=== PATIENT | male | born 1965 | race Caucasian/White ===

== ENCOUNTER 2022-05-20 21:14 | Inpatient (IN) | payer OTHER ==
[2022-05-20] MEDS ORDERED: ACETAMINOPHEN 325 MG TABLET (FP) PO ONE (22:41)
[2022-05-20] MEDS ORDERED: chlordiazePOXIDE HCL 25 MG CAPSULE PO ONE (22:41)
[2022-05-20] MEDS ORDERED: ACETAMINOPHEN 325 MG TABLET (FP) ONE (22:51)
[2022-05-20] MEDS ORDERED: chlordiazePOXIDE HCL 25 MG CAPSULE ONE (22:51)
[2022-05-20] MEDS ORDERED: MAGNESIUM HYDROX 2400MG/30ML ORAL SUSPENSION 30 ML CUP PO PRN (23:00)
[2022-05-20] MEDS ORDERED: NALOXONE HCL (KLOXXADO) 8 MG SPRAY NS PRN (23:00)
[2022-05-20] MEDS ORDERED: NICOTINE POLACRILEX 2 MG GUM BUC PRN (23:00)
[2022-05-20] MEDS ORDERED: P-EPHED 60MG/TRIPROLIDI 2.5MG TABLET PO PRN (23:00)
[2022-05-20] MEDS ORDERED: ONDANSETRON *ODT* 4 MG TABLET SL PRN (23:00)
[2022-05-20] MEDS ORDERED: BISMUTH SUBSALICYLATE 524 MG/30 ML PO PRN (23:00)
[2022-05-20] MEDS ORDERED: POLYETHYLENE GLYCOL (HEALTHYLAX) 3350 17 GM PACKET PO PRN (23:00)
[2022-05-20] MEDS ORDERED: LOPERAMIDE HCL 2 MG CAPSULE PO PRN (23:00)
[2022-05-20] MEDS ORDERED: NICOTINE 10 MG CARTRIDGE (INHALER) IH PRN (23:00)
[2022-05-20] MEDS ORDERED: BENZOCAINE/MENTHOL (CHLORASEPTIC ) LOZENGE MM PRN (23:00)
[2022-05-20] MEDS ORDERED: MELATONIN 5 MG TABLETS PO PRN (23:00)
[2022-05-20] MEDS ORDERED: DICYCLOMINE HCL 10 MG CAPSULE PO PRN (23:00)
[2022-05-20] MEDS ORDERED: IBUPROFEN 600 MG TABLET (FP) PO PRN (23:00)
[2022-05-20] MEDS ORDERED: MAG HYDROX/AL HYDROX/SIMETH 30 ML UNIT-DOSE CUP PO PRN (23:00)
[2022-05-20] MEDS ORDERED: guaiFENesin 200 MG/10 ML 10 ML UNIT-DOSE CUPS PO PRN (23:00)
[2022-05-20] MEDS ORDERED: IBUPROFEN 400 MG TABLET (FP) PO PRN (23:00)
[2022-05-20] MEDS ORDERED: ACETAMINOPHEN 325 MG TABLET (FP) PO PRN ×2 (23:00)
[2022-05-20] MEDS ORDERED: ALBUTEROL SO4 HFA INHALER IH PRN (23:30)
[2022-05-20] MEDS ORDERED: chlordiazePOXIDE HCL 25 MG CAPSULE PO PRN (23:34)
[2022-05-20 23:52] VITALS: BMI 24.3
[2022-05-21] MEDS: hydrOXYzine PAMOATE 25 MG CAPSULE (FP) PO PRN (01:32)
[2022-05-21] MEDS: chlordiazePOXIDE HCL 25 MG CAPSULE PO SCH ×4 (06:05→22:35)
[2022-05-21] MEDS: PRENATAL VITAMINS W/ FOLIC ACID TABLET (FP) PO SCH (11:06)
[2022-05-21] MEDS ORDERED: THIAMINE HCL 100 MG TABLET (FP) PO SCH (22:00)
[2022-05-22] MEDS ORDERED: chlordiazePOXIDE HCL 10 MG CAPSULE PO PRN
[2022-05-22] MEDS: chlordiazePOXIDE HCL 25 MG CAPSULE PO SCH ×3 (06:34→18:55)
[2022-05-22] MEDS: PRENATAL VITAMINS W/ FOLIC ACID TABLET (FP) PO SCH (10:17)
[2022-05-22] MEDS: hydrOXYzine PAMOATE 25 MG CAPSULE (FP) PO PRN (10:17)
[2022-05-22 11:35] VITALS: RESP 18
[2022-05-22 22:40] VITALS: BP 107/62; PULSE 67; TEMP 97.2
[2022-05-23] MEDS ORDERED: chlordiazePOXIDE HCL 10 MG CAPSULE PO SCH (05:00)
[2022-05-24] MEDS ORDERED: chlordiazePOXIDE HCL 10 MG CAPSULE PO SCH (05:00)
== END 2022-05-22 23:57 | disposition short-term general hospital (02) | DRG 775 ==
LOC: Y3N 23:34 → Y6N 05-21 12:41
PROVIDERS: ADMIT Allergy & Immunology; ATTEND Surgery
PROC: HZ2ZZZZ Detoxification Services for Substance Abuse Treatment (ICD-10-PCS; principal; 2022-05-20)
DX: F10.230 Alcohol dependence with withdrawal, uncomplicated (principal); F12.20 Cannabis dependence, uncomplicated; F17.210 Nicotine dependence, cigarettes, uncomplicated; F10.282 Alcohol dependence with alcohol-induced sleep disorder; F19.24 Other psychoactive substance dependence with psychoactive substance-induced mood disorder; I10 Essential (primary) hypertension; J44.9 Chronic obstructive pulmonary disease, unspecified; R45.851 Suicidal ideations; T87.89 Other complications of amputation stump; Z89.512 Acquired absence of left leg below knee; S09.90XA Unspecified injury of head, initial encounter; W05.0XXA Fall from non-moving wheelchair, initial encounter; Y92.238 Other place in hospital as the place of occurrence of the external cause; Y93.89 Activity, other specified; Z85.828 Personal history of other malignant neoplasm of skin; Z99.89 Dependence on other enabling machines and devices
CPT/HCPCS: 70450-TC; 72125-TC; 82962; 87811; C9803-CS; U0003; U0005

== ENCOUNTER 2022-05-22 14:20 | Inpatient (IN) | payer OTHER ==
[2022-05-22] MEDS ORDERED: GABAPENTIN 300 MG CAPSULE PO ONE (15:45)
[2022-05-22] MEDS ORDERED: GABAPENTIN 300 MG CAPSULE ONE (15:50)
[2022-05-22] MEDS ORDERED: morphine CARPU-JECT 2 MG/1 ML DISP.SYRIN IM ONE (15:56)
[2022-05-22 19:33] LABS: BASO % 0.5 % (0-2.0); EOS % 1.9 % (0-4.5); HEMATOCRIT 42.7 % (35.4-49); MCH 31.1 pg (25.7-33.7); MCHC 32.9 g/dl (32.0-35.9); MEAN CELL VOLUME 94.7 fl (80-96); MEAN PLT VOLUME 8.5 fl (7.5-11.1); MONO % 11.6 % (3.8-10.2); PLATELET COUNT 251 10^3/uL (134-434); RDW 15.5 % (11.9-15.9); WHITE BLOOD COUNT 6.5 K/mm3 (4.0-10.0)
[2022-05-22 21:01] LABS: ALBUMIN 3.5 g/dl (3.4-5.0); BLOOD UREA NITROGEN 8.5 mg/dL (7-18); CALCIUM 9.3 mg/dL (8.5-10.1)
[2022-05-22 21:05] LABS: CREATININE 1.1 mg/dL (0.55-1.3)
[2022-05-22 21:06] LABS: TOT PROT 7.1 g/dl (6.4-8.2)
[2022-05-22] MEDS ORDERED: ACETAMINOPHEN 1000 MG/100 ML BAG IVPB ONE (21:09)
[2022-05-22] MEDS ORDERED: ACETAMINOPHEN INJECTION 100 ML IVPB ONE (21:11)
[2022-05-22 21:19] LABS: BILIRUBIN,TOTAL 0.3 mg/dL (0.2-1)
[2022-05-22] MEDS ORDERED: THIAMINE HCL 200 MG/2 ML VIAL IVPB ONE (21:19)
[2022-05-22] MEDS ORDERED: chlordiazePOXIDE HCL 10 MG CAPSULE ONE (21:27)
[2022-05-22] MEDS ORDERED: ACETAMINOPHEN 1000 MG/100 ML BAG IVPB PRN (21:32)
[2022-05-22] MEDS ORDERED: ALBUTEROL SO4 HFA INHALER IH PRN (22:13)
[2022-05-22] MEDS ORDERED: morphine CARPU-JECT 2 MG/1 ML DISP.SYRIN IVPUSH ONE (22:31)
[2022-05-22] MEDS ORDERED: THIAMINE HCL 200 MG/2 ML VIAL ONE (23:16)
[2022-05-22] MEDS ORDERED: chlordiazePOXIDE HCL 25 MG CAPSULE PO ONE (23:55)
[2022-05-23] MEDS ORDERED: chlordiazePOXIDE HCL 25 MG CAPSULE ONE ×3 (00:14→19:29)
[2022-05-23] MEDS ORDERED: morphine CARPU-JECT 2 MG/1 ML DISP.SYRIN IVPUSH ONE (02:58)
[2022-05-23] MEDS ORDERED: ACETAMINOPHEN INJECTION 100 ML IVPB ONE (04:15)
[2022-05-23] MEDS: chlordiazePOXIDE HCL 10 MG CAPSULE PO SCH ×4 (04:36→23:05)
[2022-05-23] MEDS ORDERED: chlordiazePOXIDE HCL 10 MG CAPSULE ONE ×4 (04:37→23:02)
[2022-05-23] MEDS ORDERED: LORazepam 2 MG TABLET PO PRN (07:37)
[2022-05-23 08:38] LABS: BASO % 0.8 % (0-2.0); HEMATOCRIT 38.6 % (35.4-49); HEMOGLOBIN 12.6 GM/dL (11.7-16.9); LYMPH % 29.3 % (8-40); MCHC 32.7 g/dl (32.0-35.9); MEAN PLT VOLUME 8.5 fl (7.5-11.1); MONO % 14.1 % (3.8-10.2); NEUT % 53.8 % (42.8-82.8); PLATELET COUNT 239 10^3/uL (134-434); RBC 4.07 M/mm3 (4.00-5.60); RDW 15.5 % (11.9-15.9); WHITE BLOOD COUNT 4.9 K/mm3 (4.0-10.0)
[2022-05-23 09:02] LABS: CALCIUM 8.8 mg/dL (8.5-10.1)
[2022-05-23 09:03] LABS: ALBUMIN 3.2 g/dl (3.4-5.0)
[2022-05-23 09:04] LABS: BLOOD UREA NITROGEN 12.4 mg/dL (7-18)
[2022-05-23 09:06] LABS: MAGNESIUM 2.5 mg/dL (1.8-2.4); PHOSPHOROUS 3.8 mg/dL (2.5-4.9)
[2022-05-23 09:08] LABS: BILIRUBIN,TOTAL 0.2 mg/dL (0.2-1); TOT PROT 6.3 g/dl (6.4-8.2)
[2022-05-23] MEDS ORDERED: THIAMINE HCL 100 MG TABLET (FP) ONE (09:12)
[2022-05-23] MEDS ORDERED: NICOTINE 14 MG/24 HOURS TOPICAL PATCH TD ONE (09:13)
[2022-05-23] MEDS ORDERED: LORazepam 1 MG TABLET ONE ×3 (09:13→21:37)
[2022-05-23] MEDS ORDERED: FOLIC ACID 1 MG TABLET (FP) ONE (09:13)
[2022-05-23] MEDS: LORazepam 1 MG TABLET PO PRN ×2 (09:19→17:26)
[2022-05-23] MEDS: FOLIC ACID 1 MG TABLET (FP) PO SCH (09:19)
[2022-05-23] MEDS: NICOTINE 14 MG/24 HOURS TOPICAL PATCH TD SCH (09:19)
[2022-05-23] MEDS: THIAMINE HCL 100 MG TABLET (FP) PO SCH (09:19)
[2022-05-23] MEDS: ENOXAPARIN NA (PORCINE) 40 MG/0.4 ML DISP.SYRIN SQ SCH (09:19)
[2022-05-23] MEDS: chlordiazePOXIDE HCL 25 MG CAPSULE PO PRN ×2 (09:20→19:39)
[2022-05-23] MEDS ORDERED: IBUPROFEN 600 MG TABLET (FP) PO ONE ×2 (10:57→17:07)
[2022-05-23] MEDS: IBUPROFEN 600 MG TABLET (FP) PO PRN ×2 (11:00→18:47)
[2022-05-23] MEDS ORDERED: ACETAMINOPHEN 325 MG TABLET (FP) ONE ×2 (14:05→20:33)
[2022-05-23] MEDS: ACETAMINOPHEN 325 MG TABLET (FP) PO PRN ×2 (14:07→20:36)
[2022-05-23] MEDS: BUDESONIDE/FORMETEROL FUMARATE 80/4.5 mcg INHALER IH SCH ×2 (14:07→22:05)
[2022-05-24] MEDS: chlordiazePOXIDE HCL 10 MG CAPSULE PO SCH ×2 (06:16→18:00)
[2022-05-24] MEDS ORDERED: chlordiazePOXIDE HCL 10 MG CAPSULE ONE ×2 (06:22→17:54)
[2022-05-24] MEDS ORDERED: THIAMINE HCL 100 MG TABLET (FP) ONE (08:15)
[2022-05-24] MEDS ORDERED: FOLIC ACID 1 MG TABLET (FP) ONE (08:16)
[2022-05-24] MEDS ORDERED: IBUPROFEN 600 MG TABLET (FP) PO ONE ×2 (08:16→18:05)
[2022-05-24] MEDS ORDERED: LORazepam 1 MG TABLET ONE ×3 (08:16→20:21)
[2022-05-24] MEDS ORDERED: ENOXAPARIN NA (PORCINE) 40 MG/0.4 ML DISP.SYRIN SQ ONE (08:17)
[2022-05-24] MEDS ORDERED: NICOTINE 14 MG/24 HOURS TOPICAL PATCH TD ONE (08:17)
[2022-05-24] MEDS: FOLIC ACID 1 MG TABLET (FP) PO SCH (09:02)
[2022-05-24] MEDS: ENOXAPARIN NA (PORCINE) 40 MG/0.4 ML DISP.SYRIN SQ SCH (09:03)
[2022-05-24] MEDS: LORazepam 1 MG TABLET PO PRN ×3 (09:03→20:24)
[2022-05-24] MEDS: BUDESONIDE/FORMETEROL FUMARATE 80/4.5 mcg INHALER IH SCH ×2 (09:03→23:03)
[2022-05-24] MEDS: THIAMINE HCL 100 MG TABLET (FP) PO SCH (09:03)
[2022-05-24] MEDS: NICOTINE 14 MG/24 HOURS TOPICAL PATCH TD SCH (09:03)
[2022-05-24] MEDS: IBUPROFEN 600 MG TABLET (FP) PO PRN ×2 (09:04→18:11)
[2022-05-24] MEDS ORDERED: chlordiazePOXIDE HCL 25 MG CAPSULE ONE (10:48)
[2022-05-24] MEDS: chlordiazePOXIDE HCL 25 MG CAPSULE PO PRN (10:58)
[2022-05-24] MEDS ORDERED: ACETAMINOPHEN 325 MG TABLET (FP) ONE (18:06)
[2022-05-24] MEDS: ACETAMINOPHEN 325 MG TABLET (FP) PO PRN (18:12)
[2022-05-24] MEDS ORDERED: oxyCODONE HCL 5 MG TABLET ONE (18:14)
[2022-05-24] MEDS: oxyCODONE HCL 5 MG TABLET PO PRN ×2 (18:16→22:18)
[2022-05-25] MEDS: ACETAMINOPHEN 325 MG TABLET (FP) PO PRN ×3 (00:17→15:34)
[2022-05-25] MEDS: oxyCODONE HCL 5 MG TABLET PO PRN ×5 (02:18→22:12)
[2022-05-25] MEDS: LORazepam 1 MG TABLET PO PRN ×3 (02:58→19:03)
[2022-05-25] MEDS ORDERED: chlordiazePOXIDE HCL 10 MG CAPSULE PO ONE (05:00)
[2022-05-25 05:01] VITALS: BMI 26.4
[2022-05-25] MEDS: THIAMINE HCL 100 MG TABLET (FP) PO SCH (09:33)
[2022-05-25] MEDS: FOLIC ACID 1 MG TABLET (FP) PO SCH (09:33)
[2022-05-25] MEDS: ENOXAPARIN NA (PORCINE) 40 MG/0.4 ML DISP.SYRIN SQ SCH (09:34)
[2022-05-25] MEDS: NICOTINE 14 MG/24 HOURS TOPICAL PATCH TD SCH (09:34)
[2022-05-25] MEDS: BUDESONIDE/FORMETEROL FUMARATE 80/4.5 mcg INHALER IH SCH ×2 (09:42→22:15)
[2022-05-25 10:13] LABS: HEMATOCRIT 39.2 % (35.4-49); HEMOGLOBIN 12.8 GM/dL (11.7-16.9); MCH 30.9 pg (25.7-33.7); MCHC 32.6 g/dl (32.0-35.9); MEAN CELL VOLUME 94.5 fl (80-96); MEAN PLT VOLUME 8.3 fl (7.5-11.1); PLATELET COUNT 275 10^3/uL (134-434); RBC 4.15 M/mm3 (4.00-5.60); RDW 15.6 % (11.9-15.9); WHITE BLOOD COUNT 4.5 K/mm3 (4.0-10.0)
[2022-05-25 10:35] LABS: CALCIUM 8.5 mg/dL (8.5-10.1)
[2022-05-25 10:36] LABS: ALBUMIN 3.2 g/dl (3.4-5.0); BLOOD UREA NITROGEN 13.8 mg/dL (7-18)
[2022-05-25 10:39] LABS: CREATININE 1.1 mg/dL (0.55-1.3)
[2022-05-25 10:40] LABS: BILIRUBIN,TOTAL 0.4 mg/dL (0.2-1)
[2022-05-25 10:41] LABS: TOT PROT 6.5 g/dl (6.4-8.2)
[2022-05-25] MEDS: IBUPROFEN 600 MG TABLET (FP) PO PRN ×2 (12:11→20:16)
[2022-05-25] MEDS: chlordiazePOXIDE HCL 10 MG CAPSULE PO PRN ×2 (15:33→22:13)
[2022-05-25] MEDS ORDERED: ACETAMINOPHEN 1000 MG/100 ML BAG IVPB ONE (20:44)
[2022-05-25 21:17] LABS: HEMATOCRIT 38.6 % (35.4-49); HEMOGLOBIN 12.6 GM/dL (11.7-16.9); MCH 31.1 pg (25.7-33.7); MCHC 32.6 g/dl (32.0-35.9); MEAN CELL VOLUME 95.4 fl (80-96); MEAN PLT VOLUME 8.8 fl (7.5-11.1); RBC 4.05 M/mm3 (4.00-5.60); RDW 15.6 % (11.9-15.9); WHITE BLOOD COUNT 6.6 K/mm3 (4.0-10.0)
[2022-05-25 21:28] LABS: CALCIUM 8.5 mg/dL (8.5-10.1)
[2022-05-25 21:29] LABS: ALBUMIN 3.2 g/dl (3.4-5.0); BLOOD UREA NITROGEN 11.3 mg/dL (7-18)
[2022-05-25 21:32] LABS: CREATININE 1.2 mg/dL (0.55-1.3)
[2022-05-25 21:34] LABS: BILIRUBIN,TOTAL 0.1 mg/dL (0.2-1); TOT PROT 6.6 g/dl (6.4-8.2)
[2022-05-25 21:36] LABS: PLATELET COUNT 280 10^3/uL (134-434)
[2022-05-25] MEDS: GABAPENTIN 300 MG CAPSULE PO SCH (22:13)
[2022-05-26] MEDS: LORazepam 1 MG TABLET PO PRN ×3 (00:12→12:10)
[2022-05-26] MEDS ORDERED: KETOROLAC TROMETHAMINE 30 MG/1 ML VIAL IVPUSH ONE (00:15)
[2022-05-26] MEDS: GABAPENTIN 300 MG CAPSULE PO SCH ×3 (05:11→22:07)
[2022-05-26] MEDS: oxyCODONE HCL 5 MG TABLET PO PRN ×3 (08:03→20:06)
[2022-05-26] MEDS: THIAMINE HCL 100 MG TABLET (FP) PO SCH ×2 (09:35→09:41)
[2022-05-26] MEDS: FOLIC ACID 1 MG TABLET (FP) PO SCH ×2 (09:35→09:41)
[2022-05-26] MEDS: NICOTINE 14 MG/24 HOURS TOPICAL PATCH TD SCH (09:35)
[2022-05-26] MEDS: ENOXAPARIN NA (PORCINE) 40 MG/0.4 ML DISP.SYRIN SQ SCH (09:35)
[2022-05-26] MEDS: BUDESONIDE/FORMETEROL FUMARATE 80/4.5 mcg INHALER IH SCH ×2 (09:39→22:08)
[2022-05-26] MEDS ORDERED: KETOROLAC TROMETHAMINE 30 MG/1 ML VIAL IVPUSH PRN (12:29)
[2022-05-26] MEDS ORDERED: oxyCODONE HCL 5 MG TABLET PO PRN (13:36)
[2022-05-26 16:46] LABS: HEMATOCRIT 38.1 % (35.4-49); HEMOGLOBIN 12.4 GM/dL (11.7-16.9); MCH 31.2 pg (25.7-33.7); MCHC 32.6 g/dl (32.0-35.9); MEAN CELL VOLUME 95.6 fl (80-96); MEAN PLT VOLUME 8.2 fl (7.5-11.1); PLATELET COUNT 299 10^3/uL (134-434); RBC 3.98 M/mm3 (4.00-5.60); RDW 15.4 % (11.9-15.9); WHITE BLOOD COUNT 5.9 K/mm3 (4.0-10.0)
[2022-05-26 17:14] LABS: CALCIUM 8.7 mg/dL (8.5-10.1)
[2022-05-26 17:15] LABS: ALBUMIN 3.4 g/dl (3.4-5.0); BLOOD UREA NITROGEN 10.4 mg/dL (7-18)
[2022-05-26 17:18] LABS: CREATININE 1.4 mg/dL (0.55-1.3)
[2022-05-26 17:20] LABS: BILIRUBIN,TOTAL 0.4 mg/dL (0.2-1); TOT PROT 6.8 g/dl (6.4-8.2)
[2022-05-26] MEDS: ACETAMINOPHEN 325 MG TABLET (FP) PO SCH (18:46)
[2022-05-26] MEDS: LIDOCAINE 5% TOPICAL PATCH TP SCH (18:53)
[2022-05-26 22:06] LABS: PH,URINE 5.5 (5.0-8.0); URINE APPEARANCE CLEAR; URINE BILIRUBIN NEGATIVE (NEGATIVE); URINE COLOR YELLOW; URINE GLUCOSE (UA) NEGATIVE (NEGATIVE); URINE KETONE NEGATIVE (NEGATIVE); URINE LEUK ESTERASE NEGATIVE (NEGATIVE); URINE NITRITE NEGATIVE (NEGATIVE); URINE PROTEIN NEGATIVE (NEGATIVE); URINE UROBILINOGEN 0.2 mg/dL (0.2-1.0)
[2022-05-26] MEDS: LIDOCAINE PATCH REMOVAL MC SCH (22:11)
[2022-05-27] MEDS: ACETAMINOPHEN 325 MG TABLET (FP) PO SCH ×4 (00:07→17:41)
[2022-05-27] MEDS: oxyCODONE HCL 5 MG TABLET PO PRN ×3 (04:57→17:41)
[2022-05-27] MEDS: GABAPENTIN 300 MG CAPSULE PO SCH ×3 (06:35→21:53)
[2022-05-27] MEDS ORDERED: POTASSIUM CHLORIDE TABS 20 MEQ TABLET.ER (FP) PO ONE (11:30)
[2022-05-27] MEDS: NICOTINE 14 MG/24 HOURS TOPICAL PATCH TD SCH (11:34)
[2022-05-27] MEDS: FOLIC ACID 1 MG TABLET (FP) PO SCH (11:34)
[2022-05-27] MEDS: ENOXAPARIN NA (PORCINE) 40 MG/0.4 ML DISP.SYRIN SQ SCH (11:34)
[2022-05-27] MEDS: LIDOCAINE 5% TOPICAL PATCH TP SCH (11:34)
[2022-05-27] MEDS: THIAMINE HCL 100 MG TABLET (FP) PO SCH (11:34)
[2022-05-27] MEDS: BUDESONIDE/FORMETEROL FUMARATE 80/4.5 mcg INHALER IH SCH ×2 (12:07→21:54)
[2022-05-27] MEDS: LIDOCAINE PATCH REMOVAL MC SCH (21:55)
[2022-05-28] MEDS: ACETAMINOPHEN 325 MG TABLET (FP) PO SCH ×4 (00:30→18:12)
[2022-05-28] MEDS: GABAPENTIN 300 MG CAPSULE PO SCH ×3 (06:31→21:31)
[2022-05-28] MEDS: LIDOCAINE 5% TOPICAL PATCH TP SCH (10:25)
[2022-05-28] MEDS: ENOXAPARIN NA (PORCINE) 40 MG/0.4 ML DISP.SYRIN SQ SCH (10:25)
[2022-05-28] MEDS: BUDESONIDE/FORMETEROL FUMARATE 80/4.5 mcg INHALER IH SCH ×2 (10:26→21:35)
[2022-05-28] MEDS: NICOTINE 14 MG/24 HOURS TOPICAL PATCH TD SCH (10:26)
[2022-05-28] MEDS: FOLIC ACID 1 MG TABLET (FP) PO SCH (10:26)
[2022-05-28] MEDS: THIAMINE HCL 100 MG TABLET (FP) PO SCH (10:26)
[2022-05-28] MEDS: NAPROXEN 500 MG TABLET PO SCH ×2 (10:27→21:31)
[2022-05-28] MEDS: oxyCODONE HCL 5 MG TABLET PO PRN ×2 (12:10→18:11)
[2022-05-28] MEDS ORDERED: oxyCODONE HCL 5 MG TABLET PO ONE (12:34)
[2022-05-28 16:06] LABS: HEMATOCRIT 41.9 % (35.4-49); MCH 31.9 pg (25.7-33.7); MCHC 33.5 g/dl (32.0-35.9); MEAN CELL VOLUME 95.2 fl (80-96); MEAN PLT VOLUME 8.1 fl (7.5-11.1); PLATELET COUNT 324 10^3/uL (134-434); RDW 15.7 % (11.9-15.9); WHITE BLOOD COUNT 6.3 K/mm3 (4.0-10.0)
[2022-05-28 16:28] LABS: ALBUMIN 3.9 g/dl (3.4-5.0); BLOOD UREA NITROGEN 8.9 mg/dL (7-18); CALCIUM 9.2 mg/dL (8.5-10.1)
[2022-05-28 16:31] LABS: CREATININE 1.1 mg/dL (0.55-1.3)
[2022-05-28 16:33] LABS: BILIRUBIN,TOTAL 0.6 mg/dL (0.2-1); TOT PROT 7.4 g/dl (6.4-8.2)
[2022-05-28] MEDS: LIDOCAINE PATCH REMOVAL MC SCH (21:33)
[2022-05-29] MEDS: ACETAMINOPHEN 325 MG TABLET (FP) PO SCH ×3 (01:30→13:26)
[2022-05-29] MEDS: oxyCODONE HCL 5 MG TABLET PO PRN ×3 (02:50→23:09)
[2022-05-29] MEDS: MELATONIN 5 MG TABLETS PO PRN ×2 (02:51→23:10)
[2022-05-29] MEDS: GABAPENTIN 300 MG CAPSULE PO SCH ×3 (06:03→21:05)
[2022-05-29] MEDS: FOLIC ACID 1 MG TABLET (FP) PO SCH (10:14)
[2022-05-29] MEDS: THIAMINE HCL 100 MG TABLET (FP) PO SCH (10:14)
[2022-05-29] MEDS: NAPROXEN 500 MG TABLET PO SCH ×2 (10:15→21:06)
[2022-05-29] MEDS: LIDOCAINE 5% TOPICAL PATCH TP SCH (10:15)
[2022-05-29] MEDS: ENOXAPARIN NA (PORCINE) 40 MG/0.4 ML DISP.SYRIN SQ SCH (10:16)
[2022-05-29] MEDS: BUDESONIDE/FORMETEROL FUMARATE 80/4.5 mcg INHALER IH SCH ×2 (10:16→21:06)
[2022-05-29] MEDS: NICOTINE 14 MG/24 HOURS TOPICAL PATCH TD SCH (10:16)
[2022-05-29] MEDS: ACETAMINOPHEN 500 MG TABLET (FP) PO SCH ×2 (17:39→23:07)
[2022-05-29] MEDS: LIDOCAINE PATCH REMOVAL MC SCH (21:13)
[2022-05-30] MEDS: ACETAMINOPHEN 500 MG TABLET (FP) PO SCH ×3 (06:48→17:53)
[2022-05-30] MEDS: GABAPENTIN 300 MG CAPSULE PO SCH ×3 (06:50→21:39)
[2022-05-30] MEDS: oxyCODONE HCL 5 MG TABLET PO PRN ×3 (06:50→16:38)
[2022-05-30] MEDS: THIAMINE HCL 100 MG TABLET (FP) PO SCH (10:18)
[2022-05-30] MEDS: NAPROXEN 500 MG TABLET PO SCH ×2 (10:18→21:39)
[2022-05-30] MEDS: BUDESONIDE/FORMETEROL FUMARATE 80/4.5 mcg INHALER IH SCH ×2 (10:18→21:40)
[2022-05-30] MEDS: FOLIC ACID 1 MG TABLET (FP) PO SCH (10:18)
[2022-05-30] MEDS: NICOTINE 14 MG/24 HOURS TOPICAL PATCH TD SCH (10:18)
[2022-05-30] MEDS: LIDOCAINE 5% TOPICAL PATCH TP SCH (10:18)
[2022-05-30] MEDS ORDERED: ENOXAPARIN NA (PORCINE) 40 MG/0.4 ML DISP.SYRIN SQ SCH (15:09)
[2022-05-30] MEDS: ENOXAPARIN NA (PORCINE) 40 MG/0.4 ML DISP.SYRIN SQ SCH (16:38)
[2022-05-30 17:06] LABS: MCH 31.7 pg (25.7-33.7); MCHC 33.3 g/dl (32.0-35.9); MEAN CELL VOLUME 95.2 fl (80-96); MEAN PLT VOLUME 8.3 fl (7.5-11.1); PLATELET COUNT 295 10^3/uL (134-434); RDW 15.6 % (11.9-15.9); WHITE BLOOD COUNT 5.7 K/mm3 (4.0-10.0)
[2022-05-30 17:18] LABS: ALBUMIN 3.5 g/dl (3.4-5.0); BLOOD UREA NITROGEN 11.5 mg/dL (7-18); CALCIUM 8.7 mg/dL (8.5-10.1)
[2022-05-30 17:23] LABS: BILIRUBIN,TOTAL 0.3 mg/dL (0.2-1); TOT PROT 6.6 g/dl (6.4-8.2)
[2022-05-30] MEDS: LIDOCAINE PATCH REMOVAL MC SCH (23:49)
[2022-05-31] MEDS: ACETAMINOPHEN 500 MG TABLET (FP) PO SCH ×2 (01:32→06:15)
[2022-05-31] MEDS: GABAPENTIN 300 MG CAPSULE PO SCH (06:15)
[2022-05-31 07:10] VITALS: RESP 20
[2022-05-31] MEDS ORDERED: ENOXAPARIN NA (PORCINE) 40 MG/0.4 ML DISP.SYRIN SQ SCH (10:00)
[2022-05-31] MEDS: NAPROXEN 500 MG TABLET PO SCH (10:59)
[2022-05-31] MEDS: FOLIC ACID 1 MG TABLET (FP) PO SCH (10:59)
[2022-05-31] MEDS: LIDOCAINE 5% TOPICAL PATCH TP SCH ×2 (10:59→11:01)
[2022-05-31] MEDS: THIAMINE HCL 100 MG TABLET (FP) PO SCH (10:59)
[2022-05-31] MEDS: NICOTINE 14 MG/24 HOURS TOPICAL PATCH TD SCH (11:00)
[2022-05-31] MEDS: BUDESONIDE/FORMETEROL FUMARATE 80/4.5 mcg INHALER IH SCH (11:02)
[2022-05-31 11:50] VITALS: BP 162/90; PULSE 60; TEMP 97.6
[2022-05-31] MEDS: ENOXAPARIN NA (PORCINE) 40 MG/0.4 ML DISP.SYRIN SQ SCH (11:51)
== END 2022-05-31 12:11 | disposition home or self-care (01) | DRG 48 ==
LOC: JER 14:20 → JERBED 20:53 → J8W 05-24 22:08 → OBSVTOIN 05-25 15:04
PROVIDERS: ADMIT Internal Medicine; ATTEND Internal Medicine
PROC: HZ2ZZZZ Detoxification Services for Substance Abuse Treatment (ICD-10-PCS; principal; 2022-05-22)
DX: G57.92 Unspecified mononeuropathy of left lower limb (principal); I10 Essential (primary) hypertension; F10.239 Alcohol dependence with withdrawal, unspecified; F17.210 Nicotine dependence, cigarettes, uncomplicated; M79.605 Pain in left leg; R45.1 Restlessness and agitation
CPT/HCPCS: 0241U-QW; 36415; 71045-TC-FY; 73562-TC-LT-FY; 73700-TC-RT; 80051; 80053; 81003; 83036; 83735; 84100; 85025; 85027; 93971-TC; 97116-GP; 97161-GP; 99285-25; G0378

== ENCOUNTER 2022-09-28 12:28 | Inpatient (IN) | payer OTHER ==
[2022-09-28 13:17] VITALS: BMI 22.6
[2022-09-28] MEDS ORDERED: LOPERAMIDE HCL 2 MG CAPSULE PO PRN (15:18)
[2022-09-28] MEDS ORDERED: POLYETHYLENE GLYCOL (HEALTHYLAX) 3350 17 GM PACKET PO PRN (15:18)
[2022-09-28] MEDS ORDERED: MAG HYDROX/AL HYDROX/SIMETH 30 ML UNIT-DOSE CUP PO PRN (15:18)
[2022-09-28] MEDS ORDERED: guaiFENesin 600 MG TABLET.ER (FP) PO PRN (15:18)
[2022-09-28] MEDS ORDERED: BENZOCAINE/MENTHOL (CHLORASEPTIC ) LOZENGE MM PRN (15:18)
[2022-09-28] MEDS ORDERED: ACETAMINOPHEN 325 MG TABLET (FP) PO PRN (15:18)
[2022-09-28] MEDS ORDERED: IBUPROFEN 400 MG TABLET (FP) PO PRN (15:18)
[2022-09-28] MEDS ORDERED: BENZONATATE 200 MG CAPSULE PO PRN (15:18)
[2022-09-28] MEDS ORDERED: DICYCLOMINE HCL 10 MG CAPSULE PO PRN (15:18)
[2022-09-28] MEDS ORDERED: LORazepam 2 MG TABLET PO ONE (15:18)
[2022-09-28] MEDS ORDERED: IBUPROFEN 600 MG TABLET (FP) PO PRN (15:18)
[2022-09-28] MEDS ORDERED: BISMUTH SUBSALICYLATE 524 MG/30 ML PO PRN (15:18)
[2022-09-28] MEDS ORDERED: MAGNESIUM HYDROX 2400MG/30ML ORAL SUSPENSION 30 ML CUP PO PRN (15:18)
[2022-09-28] MEDS ORDERED: ONDANSETRON *ODT* 4 MG TABLET SL PRN (15:18)
[2022-09-28] MEDS ORDERED: NICOTINE 21 MG/24 HOURS TOPICAL PATCH TD PRN (15:18)
[2022-09-28] MEDS ORDERED: ALBUTEROL SO4 HFA INHALER IH PRN (15:32)
[2022-09-28] MEDS: amLODIPine BESYLATE 5 MG TABLET (FP) PO SCH (16:08)
[2022-09-28] MEDS ORDERED: amLODIPine BESYLATE 5 MG TABLET (FP) ONE (16:09)
[2022-09-28] MEDS: LORazepam 2 MG TABLET PO SCH ×2 (17:20→22:55)
[2022-09-28] MEDS: LORazepam 1 MG TABLET PO PRN (18:17)
[2022-09-28] MEDS: BUDESONIDE/FORMETEROL FUMARATE 160/4.5 mcg INHALER IH SCH (22:54)
[2022-09-28] MEDS: MELATONIN 5 MG TABLETS PO SCH (22:55)
[2022-09-28] MEDS: THIAMINE HCL 100 MG TABLET (FP) PO SCH (22:55)
[2022-09-28] MEDS: METHOCARBAMOL 500 MG TABLET PO PRN (23:01)
[2022-09-28] MEDS: hydrOXYzine PAMOATE 25 MG CAPSULE (FP) PO PRN (23:01)
[2022-09-29] MEDS: LORazepam 2 MG TABLET PO SCH ×4 (05:52→22:03)
[2022-09-29] MEDS: BUDESONIDE/FORMETEROL FUMARATE 160/4.5 mcg INHALER IH SCH ×2 (10:28→22:05)
[2022-09-29] MEDS: PRENATAL VITAMINS W/ FOLIC ACID TABLET (FP) PO SCH (10:30)
[2022-09-29] MEDS: amLODIPine BESYLATE 5 MG TABLET (FP) PO SCH (10:30)
[2022-09-29 11:58] LABS: HEMOGLOBIN 14.2 GM/dL (11.7-16.9); MCH 32.4 pg (25.7-33.7); MCHC 34.6 g/dl (32.0-35.9); MEAN CELL VOLUME 93.6 fl (80-96); PLATELET COUNT 195 10^3/uL (134-434); RBC 4.38 M/mm3 (4.00-5.60); RDW 16.9 % (11.9-15.9); WHITE BLOOD COUNT 6.1 K/mm3 (4.0-10.0)
[2022-09-29 12:04] LABS: ALBUMIN 3.6 g/dl (3.4-5.0); CALCIUM 9.4 mg/dL (8.5-10.1)
[2022-09-29 12:05] LABS: BLOOD UREA NITROGEN 7.5 mg/dL (7-18)
[2022-09-29 12:07] LABS: CREATININE 0.9 mg/dL (0.55-1.3)
[2022-09-29 12:09] LABS: BILIRUBIN,TOTAL 0.4 mg/dL (0.2-1); TOT PROT 7.4 g/dl (6.4-8.2)
[2022-09-29] MEDS: LORazepam 1 MG TABLET PO PRN (13:57)
[2022-09-29] MEDS: hydrOXYzine PAMOATE 25 MG CAPSULE (FP) PO PRN (22:04)
[2022-09-29] MEDS: METHOCARBAMOL 500 MG TABLET PO PRN (22:04)
[2022-09-29] MEDS: THIAMINE HCL 100 MG TABLET (FP) PO SCH (22:05)
[2022-09-29] MEDS: MELATONIN 5 MG TABLETS PO SCH (22:05)
[2022-09-30] MEDS: LORazepam 1 MG TABLET PO SCH ×4 (05:17→22:11)
[2022-09-30] MEDS: PRENATAL VITAMINS W/ FOLIC ACID TABLET (FP) PO SCH (10:39)
[2022-09-30] MEDS: amLODIPine BESYLATE 5 MG TABLET (FP) PO SCH (10:39)
[2022-09-30] MEDS: BUDESONIDE/FORMETEROL FUMARATE 160/4.5 mcg INHALER IH SCH ×2 (10:39→22:11)
[2022-09-30] MEDS: LORazepam 1 MG TABLET PO PRN (15:22)
[2022-09-30] MEDS: NICOTINE POLACRILEX 4 MG GUM BUC PRN (15:24)
[2022-09-30] MEDS: MELATONIN 5 MG TABLETS PO SCH (22:09)
[2022-09-30] MEDS: hydrOXYzine PAMOATE 25 MG CAPSULE (FP) PO PRN (22:09)
[2022-09-30] MEDS: METHOCARBAMOL 500 MG TABLET PO PRN (22:09)
[2022-09-30] MEDS: THIAMINE HCL 100 MG TABLET (FP) PO SCH (22:11)
[2022-10-01] MEDS ORDERED: LORazepam 0.5 MG TABLET PO PRN
[2022-10-01] MEDS: LORazepam 0.5 MG TABLET PO SCH ×4 (05:57→22:37)
[2022-10-01] MEDS: BUDESONIDE/FORMETEROL FUMARATE 160/4.5 mcg INHALER IH SCH ×2 (10:44→22:37)
[2022-10-01] MEDS: amLODIPine BESYLATE 5 MG TABLET (FP) PO SCH (10:45)
[2022-10-01] MEDS: PRENATAL VITAMINS W/ FOLIC ACID TABLET (FP) PO SCH (10:45)
[2022-10-01] MEDS: NICOTINE POLACRILEX 4 MG GUM BUC PRN (10:47)
[2022-10-01] MEDS: IBUPROFEN 600 MG TABLET (FP) PO PRN (17:11)
[2022-10-01] MEDS: METHOCARBAMOL 500 MG TABLET PO PRN (17:11)
[2022-10-01] MEDS: THIAMINE HCL 100 MG TABLET (FP) PO SCH (22:37)
[2022-10-01] MEDS: MELATONIN 5 MG TABLETS PO SCH (22:37)
[2022-10-02] MEDS ORDERED: LORazepam 0.5 MG TABLET PO ONE (05:00)
[2022-10-02] MEDS: amLODIPine BESYLATE 5 MG TABLET (FP) PO SCH (10:25)
[2022-10-02] MEDS: BUDESONIDE/FORMETEROL FUMARATE 160/4.5 mcg INHALER IH SCH ×2 (10:25→21:12)
[2022-10-02] MEDS: PRENATAL VITAMINS W/ FOLIC ACID TABLET (FP) PO SCH (10:25)
[2022-10-02] MEDS: METHOCARBAMOL 500 MG TABLET PO PRN (10:26)
[2022-10-02] MEDS: IBUPROFEN 600 MG TABLET (FP) PO PRN (10:26)
[2022-10-02] MEDS: NAPROXEN 500 MG TABLET PO SCH ×2 (12:06→21:12)
[2022-10-02] MEDS: LIDOCAINE 5% TOPICAL PATCH TP SCH (12:06)
[2022-10-02] MEDS: MELATONIN 5 MG TABLETS PO SCH (21:10)
[2022-10-02] MEDS: THIAMINE HCL 100 MG TABLET (FP) PO SCH (21:10)
[2022-10-02] MEDS ORDERED: LIDOCAINE PATCH REMOVAL MC SCH (22:00)
[2022-10-03 08:53] VITALS: TEMP 98.2
[2022-10-03] MEDS: NAPROXEN 500 MG TABLET PO SCH (10:38)
[2022-10-03] MEDS: amLODIPine BESYLATE 5 MG TABLET (FP) PO SCH (10:38)
[2022-10-03] MEDS: LIDOCAINE 5% TOPICAL PATCH TP SCH (10:38)
[2022-10-03] MEDS: PRENATAL VITAMINS W/ FOLIC ACID TABLET (FP) PO SCH (10:38)
[2022-10-03] MEDS: BUDESONIDE/FORMETEROL FUMARATE 160/4.5 mcg INHALER IH SCH (10:39)
[2022-10-03 13:16] VITALS: BP 136/84; PULSE 78; RESP 18
== END 2022-10-03 13:56 | disposition other institution (70) | DRG 775 ==
LOC: YASAS 12:28 → Y3N 16:03
PROVIDERS: ADMIT Allergy & Immunology; ATTEND Surgery
PROC: HZ2ZZZZ Detoxification Services for Substance Abuse Treatment (ICD-10-PCS; principal; 2022-09-28)
DX: F10.230 Alcohol dependence with withdrawal, uncomplicated (principal); F17.210 Nicotine dependence, cigarettes, uncomplicated; I10 Essential (primary) hypertension; J44.9 Chronic obstructive pulmonary disease, unspecified; Z89.512 Acquired absence of left leg below knee; Z99.89 Dependence on other enabling machines and devices; Z88.8 Allergy status to other drugs, medicaments and biological substances; Z91.013 Allergy to seafood
CPT/HCPCS: 36415; 80053; 83036; 85027; 86780; C9803-CS; U0003; U0005

== ENCOUNTER 2022-12-11 20:06 | Inpatient (IN) | payer OTHER ==
[2022-12-11 21:09] VITALS: BMI 24.3
[2022-12-11] MEDS ORDERED: NALOXONE HCL (KLOXXADO) 8 MG SPRAY NS PRN (23:17)
[2022-12-11] MEDS ORDERED: NALOXONE HCL 0.4 MG/ML VIAL IM PRN (23:17)
[2022-12-11] MEDS ORDERED: IBUPROFEN 400 MG TABLET (FP) PO PRN (23:17)
[2022-12-11] MEDS ORDERED: guaiFENesin 600 MG TABLET.ER (FP) PO PRN (23:17)
[2022-12-11] MEDS ORDERED: BENZONATATE 200 MG CAPSULE PO PRN (23:17)
[2022-12-11] MEDS ORDERED: POLYETHYLENE GLYCOL (HEALTHYLAX) 3350 17 GM PACKET PO PRN (23:17)
[2022-12-11] MEDS ORDERED: BENZOCAINE/MENTHOL (CHLORASEPTIC ) LOZENGE MM PRN (23:17)
[2022-12-11] MEDS ORDERED: LOPERAMIDE HCL 2 MG CAPSULE PO PRN (23:17)
[2022-12-11] MEDS ORDERED: ACETAMINOPHEN 325 MG TABLET (FP) PO PRN (23:17)
[2022-12-11] MEDS ORDERED: MAGNESIUM HYDROX 2400MG/30ML ORAL SUSPENSION 30 ML CUP PO PRN (23:17)
[2022-12-11] MEDS ORDERED: IBUPROFEN 600 MG TABLET (FP) PO PRN (23:17)
[2022-12-11] MEDS ORDERED: NICOTINE 10 MG CARTRIDGE (INHALER) IH PRN (23:17)
[2022-12-11] MEDS ORDERED: DICYCLOMINE HCL 10 MG CAPSULE PO PRN (23:17)
[2022-12-11] MEDS ORDERED: BISMUTH SUBSALICYLATE 524 MG/30 ML PO PRN (23:17)
[2022-12-11] MEDS ORDERED: ONDANSETRON *ODT* 4 MG TABLET SL PRN (23:17)
[2022-12-11] MEDS ORDERED: MAG HYDROX/AL HYDROX/SIMETH 30 ML UNIT-DOSE CUP PO PRN (23:17)
[2022-12-11] MEDS ORDERED: cloNIDine HCL 0.1 MG TABLET PO ONE (23:50)
[2022-12-11] MEDS ORDERED: LORazepam 2 MG TABLET ONE (23:52)
[2022-12-11] MEDS ORDERED: cloNIDine HCL 0.1 MG TABLET ONE (23:52)
[2022-12-11] MEDS: LORazepam 1 MG TABLET PO SCH (23:55)
[2022-12-12] MEDS: LORazepam 1 MG TABLET PO SCH ×3 (05:33→17:44)
[2022-12-12] MEDS: PRENATAL VITAMINS W/ FOLIC ACID TABLET (FP) PO SCH (10:10)
[2022-12-12] MEDS: METHOCARBAMOL 500 MG TABLET PO PRN (10:10)
[2022-12-12] MEDS: NICOTINE 14 MG/24 HOURS TOPICAL PATCH TD SCH (10:11)
[2022-12-12] MEDS: LORazepam 1 MG TABLET PO PRN ×2 (13:40→19:38)
[2022-12-12] MEDS ORDERED: LORazepam 2 MG TABLET PO SCH (17:43)
[2022-12-12 21:11] VITALS: RESP 18
[2022-12-12] MEDS ORDERED: THIAMINE HCL 100 MG TABLET (FP) PO SCH (22:00)
[2022-12-12] MEDS ORDERED: MELATONIN 5 MG TABLETS PO SCH (22:00)
[2022-12-12] MEDS ORDERED: SUVOREXANT 10 MG TABLET PO PRN (22:00)
[2022-12-13] MEDS: LORazepam 1 MG TABLET PO SCH ×2 (05:24→10:40)
[2022-12-13 09:25] VITALS: BP 134/68; PULSE 90; TEMP 97.3
[2022-12-13] MEDS: PRENATAL VITAMINS W/ FOLIC ACID TABLET (FP) PO SCH (10:39)
[2022-12-13] MEDS: METHOCARBAMOL 500 MG TABLET PO PRN (10:39)
[2022-12-13] MEDS: NICOTINE 14 MG/24 HOURS TOPICAL PATCH TD SCH (10:42)
[2022-12-14] MEDS ORDERED: LORazepam 0.5 MG TABLET PO PRN
[2022-12-14] MEDS ORDERED: LORazepam 0.5 MG TABLET PO SCH (05:00)
[2022-12-15] MEDS ORDERED: LORazepam 0.5 MG TABLET PO ONE (05:00)
== END 2022-12-13 12:25 | disposition left against medical advice (07) | DRG 770 ==
LOC: YASAS 20:06 → Y6N 12-12 01:08
PROVIDERS: ADMIT Allergy & Immunology; ATTEND Allergy & Immunology
PROC: HZ2ZZZZ Detoxification Services for Substance Abuse Treatment (ICD-10-PCS; principal; 2022-12-12)
DX: F10.230 Alcohol dependence with withdrawal, uncomplicated (principal); F12.20 Cannabis dependence, uncomplicated; F17.210 Nicotine dependence, cigarettes, uncomplicated; F20.9 Schizophrenia, unspecified; I10 Essential (primary) hypertension; J44.9 Chronic obstructive pulmonary disease, unspecified; I73.9 Peripheral vascular disease, unspecified; Z89.512 Acquired absence of left leg below knee; Z99.3 Dependence on wheelchair; F91.8 Other conduct disorders; Y04.0XXA Assault by unarmed brawl or fight, initial encounter; Y92.238 Other place in hospital as the place of occurrence of the external cause; Z91.199 Patient's noncompliance with other medical treatment and regimen due to unspecified reason; Z88.8 Allergy status to other drugs, medicaments and biological substances
CPT/HCPCS: 87635; 93005; 93010